=== PATIENT | female | born 1935 | race Caucasian/White ===

== ENCOUNTER 2018-01-02 12:57 | Emergency (ER) | payer OTHER, MEDICARE ==
[~2018-01-02] VITALS: Ht 162.6 cm; Wt 58.1 kg
[2018-01-02 13:59] LABS: HEMOGLOBIN 15.5 G/DL (11.9-15.5); MCH 29.2 PG (29.0-34.0); MCV 88.5 FL (83-99); PLATELET COUNT 318 K/uL (156-360); RBC DIS.WIDTH-CV 14.1 % (11.8-14.6); RBC DIS.WIDTH-SD 45.6 % (39-53); RED BLOOD COUNT 5.31 M/uL (3.80-5.20)
[2018-01-02 14:08] LABS: CHLORIDE 109 mEq/L (99-109); POTASSIUM 4.4 mEq/L (3.7-5.4); SODIUM 141 mEq/L (136-147)
[2018-01-02 14:09] LABS: GLUCOSE 125 mg/dL (70-99)
[2018-01-02 14:13] LABS: CREATININE 0.7 mg/dL (0.6-1.3); GFR ESTIMATE (CALCULATED) > 59 mL/min/
[2018-01-02 14:14] LABS: UREA NITROGEN (BUN) 14 mg/dL (9-23)
[2018-01-02 15:45] LABS: MAGNESIUM 2.5 mg/dL (1.3-2.7)
[2018-01-02 15:50] LABS: PHOSPHORUS 2.2 mg/dL (2.5-4.9)
[2018-01-02] MEDS ORDERED: ATIVAN0.5 MG PO (15:59)
[2018-01-02 16:49] VITALS: BP 197/96
== END 2018-01-02 16:53 | disposition home or self-care (01) ==
LOC: EME 12:57
PROVIDERS: Emergency Medicine Emergency Medical Services
DX: G62.9 Polyneuropathy, unspecified (principal); E83.52 Hypercalcemia; E83.39 Other disorders of phosphorus metabolism; I10 Essential (primary) hypertension; Z88.0 Allergy status to penicillin
CPT/HCPCS: 80048; 83735; 84100; 85027; 99281; 99284